=== PATIENT | male | born 1945 | race Caucasian/White ===

== ENCOUNTER 2018-01-25 13:35 | Emergency (ER) | payer OTHER, BC ==
[2018-01-25 13:43] VITALS: TEMP 98; BMI 22.2
--- NOTE | 2018-01-25 16:05 | PDOC ---
History of Present Illness - General Chief Complaint: Pain Stated Complaint: PAIN Time Seen by Provider: 01/25/18 15:58 - History of Present Illness Initial Comments: 01/25/18 18:04 The patient is a 72-year-old male, with a past medical history of CVA, hyperlipidemia, HTN, colonic polyps, and dementia, who presents to the ED with left inguinal pain today. The patient states that hes had this pain for many years, but it progressively worsened 2 days ago. He states that he noted a lump in the area when he is lying down that goes away when he stands up. The patient had an appointment with his Urologist today and had a urinalysis and blood drawn. The results came back negative. He denies having any prior surgeries or testicular pain. The patient denies any fever, chills, nausea, vomiting, or diarrhea. Last BM today was normal. Denies any chest pain shortness of breath. Denies any urinary symptoms. Allergies: NKA Surgical History: None PCP: Dr. Eric Hairston Past History - Past Medical History Allergies/Adverse Reactions: Allergies Allergy/AdvReac Type Severity Reaction Status Date / Time No Known Allergies Allergy Unverified 01/25/18 13:37 Home Medications: Ambulatory Orders Aspirin [ASA -] 325 mg PO 09/04/11 Benazepril HCl 5 mg PO DAILY 05/22/12 Fish Oil/Fat No.8/Hrb Comb.137 [[place] 3-6-9 1,200 mg Softgel] 1,200 mg PO DAILY 05/22/12 Lovastatin 80 mg PO DAILY 01/25/18 Anemia: No Asthma: No Cancer: No Cardiac Disorders: No CVA: Yes (NO RESIDUAL WEAKNESS) COPD: No CHF: No Dementia: Yes (MEMORY LOSS) Diabetes: No GI Disorders: Yes (COLONIC POLYPS) Disorders: No HTN: Yes Hypercholesterolemia: No Liver Disease: No Seizures: No Thyroid Disease: No - Surgical History Abdominal Surgery: No Appendectomy: No Cardiac Surgery: No Cholecystectomy: No Lung Surgery: No Neurologic Surgery: No Orthopedic Surgery: Yes (ARTHROSCOPIC SURGERY BOTH KNEES) - Suicide/Smoking/Psychosocial Hx Smoking Status: No Smoking History: Never smoked Have you smoked in the past 12 months: No Number of Cigarettes Smoked Daily: 0 Cigars Per Day: 0 Hx Alcohol Use: No Drug/Substance Use Hx: No Substance Use Type: Alcohol Hx Substance Use Treatment: No Review of Systems - Review of Systems Comments:: 01/25/18 18:04 GENERAL/CONSTITUTIONAL: No fever or chills. No weakness. HEAD, EYES, EARS, NOSE AND THROAT: No change in vision. No ear pain or discharge. No sore throat. GASTROINTESTINAL: (+)left inguinal pain. No nausea, vomiting, diarrhea or constipation. GENITOURINARY: No dysuria, frequency, or change in urination. CARDIOVASCULAR: No chest pain or shortness of breath. RESPIRATORY: No cough, wheezing, or hemoptysis. MUSCULOSKELETAL: No joint or muscle swelling or pain. No neck or back pain. SKIN: No rash NEUROLOGIC: No headache, vertigo, loss of consciousness, or change in strength/ sensation. ENDOCRINE: No increased thirst. No abnormal weight change. HEMATOLOGIC/LYMPHATIC: No anemia, easy bleeding, or history of blood clots. ALLERGIC/IMMUNOLOGIC: No hives or skin allergy. *Physical Exam - Vital Signs Last Vital Signs Temp Pulse Resp BP Pulse Ox 98 F 70 16 117/72 99 01/25/18 13:35 01/25/18 13:35 01/25/18 13:35 01/25/18 13:35 01/25/18 13:35 - Physical Exam Comments: 01/25/18 18:04 GENERAL: Awake, alert, and fully oriented, in no acute distress HEAD: No signs of trauma EYES: PERRLA, EOMI, sclera anicteric, conjunctiva clear ENT: Auricles normal inspection, hearing grossly normal, nares patent, oropharynx clear without exudates. Moist mucosa NECK: Normal ROM, supple, no lymphadenopathy, JVD, or masses LUNGS: Breath sounds equal, clear to auscultation bilaterally. No wheezes, and no crackles HEART: Regular rate and rhythm, normal S1 and S2, no murmurs, rubs or gallops ABDOMEN: +mild ttp over the inguinal canal. Soft, normoactive bowel sounds. No guarding, no rebound. No masses palpated. EXTREMITIES: Normal range of motion, no edema. No clubbing or cyanosis. No cords , erythema, or tenderness BACK: No midline spinal tenderness in cervical/thoracic/lumbar region NEUROLOGICAL: Normal speech, cranial nerves intact, negative pronator drift, 5/ 5 strength in all 4 extremities, normal sensation to light touch in all 4 extremities, normal cerebellar exam, normal gait, normal reflexes and tone SKIN: Warm, Dry, normal turgor, no rashes or lesions noted. ED Treatment Course - LABORATORY CBC & Chemistry Diagram: 01/25/18 16:40 01/25/18 16:40 Medical Decision Making - Medical Decision Making 01/25/18 18:07 72yo F with MMP presents with years of L inguinal pain, suddenly worse 2 days ago. Vitals wnl. Exam with mild ttp over left inguinal canal. Will obtain labs, UA, and CTAP and reassess. *DC/Admit/Observation/Transfer - Referrals Referrals: Eric Hairston MD [Primary Care Provider] - - Patient Instructions - Post Discharge Activity
[2018-01-25 17:00] LABS: BASO % 0.3 % (0-2.0); EOS % 1.2 % (0-4.5); HEMATOCRIT 41.5 % (35.4-49); HEMOGLOBIN 13.9 GM/dL (11.7-16.9); LYMPH % 17.2 % (8-40); MCH 32.3 pg (25.7-33.7); MCHC 33.5 g/dl (32.0-35.9); MEAN CELL VOLUME 96.3 fl (80-96); MEAN PLT VOLUME 9.4 fl (7.5-11.1); MONO % 9.6 % (3.8-10.2); NEUT % 71.7 % (42.8-82.8); PLATELET COUNT 169 K/MM3 (134-434); RBC 4.31 M/mm3 (4.00-5.60); WHITE BLOOD COUNT 4.1 K/mm3 (4.0-10.0)
[2018-01-25 17:01] LABS: URINE APPEARANCE CLEAR; URINE BILIRUBIN NEGATIVE (<2.0 mg/dL); URINE BLOOD NEGATIVE (NEGATIVE); URINE COLOR STRAW; URINE GLUCOSE (UA) NEGATIVE (NEGATIVE); URINE KETONE NEGATIVE (NEGATIVE); URINE LEUK ESTERASE NEGATIVE (NEGATIVE); URINE NITRITE NEGATIVE (NEGATIVE); URINE PROTEIN NEGATIVE (NEGATIVE); URINE UROBILINOGEN NEGATIVE mg/dL (0.2-1.0)
[2018-01-25 18:27] LABS: ALBUMIN 3.7 g/dl (3.4-5.0); ALK PHOS 58 U/L (45-117); ANION GAP 7 (8-16); BILIRUBIN,TOTAL 0.3 mg/dL (0.2-1.0); BLOOD UREA NITROGEN 16 mg/dL (7-18); CALCIUM 9.1 mg/dL (8.5-10.1); CHLORIDE 102 mmol/L (98-107); CO2 29 mmol/L (21-32); GLUCOSE,RANDOM 100 mg/dL (74-106); POTASSIUM 4.8 mmol/L (3.5-5.1); SGOT/AST 29 U/L (15-37); SGPT/ALT 28 U/L (12-78); SODIUM 138 mmol/L (136-145); TOT PROT 6.7 g/dl (6.4-8.2)
--- NOTE | 2018-01-25 21:06 | PDOC ---
*Physical Exam - Vital Signs Last Vital Signs Temp Pulse Resp BP Pulse Ox 98 F 70 16 117/72 99 01/25/18 13:35 01/25/18 13:35 01/25/18 13:35 01/25/18 13:35 01/25/18 13:35 ED Treatment Course - LABORATORY CBC & Chemistry Diagram: 01/25/18 16:40 01/25/18 17:50 - ADDITIONAL ORDERS Additional order review: Laboratory Results 01/25/18 01/25/18 01/25/18 17:50 16:40 16:40 Sodium 138 Cancelled Potassium 4.8 Cancelled Chloride 102 Cancelled Carbon Dioxide 29 Cancelled Anion Gap 7 L Cancelled BUN 16 Cancelled Creatinine 1.0 Cancelled Creat Clearance w eGFR > 60 Cancelled Random Glucose 100 Cancelled Calcium 9.1 Cancelled Total Bilirubin 0.3 Cancelled AST 29 Cancelled ALT 28 Cancelled Alkaline Phosphatase 58 Cancelled Total Protein 6.7 Cancelled Albumin 3.7 Cancelled Urine Color Straw Urine Appearance Clear Urine pH 7.0 Ur Specific Tye 1.006 Urine Protein Negative Urine Glucose (UA) Negative Urine Ketones Negative Urine Blood Negative Urine Nitrite Negative Urine Bilirubin Negative Urine Urobilinogen Negative Ur Leukocyte Esterase Negative 01/25/18 16:40 RBC 4.31 MCV 96.3 H MCHC 33.5 RDW 13.0 MPV 9.4 Neutrophils % 71.7 Lymphocytes % 17.2 Monocytes % 9.6 Eosinophils % 1.2 Basophils % 0.3 *DC/Admit/Observation/Transfer Diagnosis at time of Disposition: Abdominal pain Qualifiers: Abdominal location: unspecified location Qualified Code(s): R10.9 - Unspecified abdominal pain - Discharge Dispostion Disposition: HOME Condition at time of disposition: Stable Decision to Admit order: No - Referrals Referrals: Eric Hairston MD [Primary Care Provider] - - Patient Instructions Printed Discharge Instructions: DI for Abdominal Pain-Adult Additional Instructions: Please follow up with Dr. Kostas Haisrton tomorrow. give a call after 10 am. - Post Discharge Activity
[2018-01-25 21:15] VITALS: BP 145/72; PULSE 62
== END 2018-01-25 21:15 | disposition home or self-care (01) ==
LOC: JER 13:35
DX: R10.9 Unspecified abdominal pain (principal); E78.5 Hyperlipidemia, unspecified; I10 Essential (primary) hypertension; Z86.73 Personal history of transient ischemic attack (TIA), and cerebral infarction without residual deficits; F03.90 Unspecified dementia, unspecified severity, without behavioral disturbance, psychotic disturbance, mood disturbance, and anxiety
CPT/HCPCS: 36415; 74177-TC; 80053; 81003; 85025; 87086; 99283-25

== ENCOUNTER 2018-01-28 12:00 | Emergency (ER) | payer OTHER, BC ==
[2018-01-28 12:06] VITALS: BP 130/72; PULSE 69; TEMP 97.7; BMI 22.2
--- NOTE | 2018-01-28 12:25 | PDOC ---
History of Present Illness - General Chief Complaint: Constipation Stated Complaint: PAIN Time Seen by Provider: 01/28/18 12:14 History Source: Patient Exam Limitations: No Limitations - History of Present Illness Initial Comments: This is a 72 YOM with h/o TIA x3, HTN, HLD, and distant spinal stenosis who p/w left mid-femur pain and constipation. He was seen here in the ED on 01/25/18 for left inguinal pain. He had lab workup and CTAP at that time which showed moderate-large amount of stool in the colon, as well as L2-3 moderate DDD with mild central and left parasternal posterior spur formation possibly impinging left L3 nerve root, L4-5 moderate DDD with mild broad-based disc bulge raching right L4 nerve root, and L5-S1 mild DDD with mild broad-based disc bulge probably slightly impinging both L5 nerve roots. He has had slightly improved constipation since that time, last BM this morning was moderate sized and brown , not black or bloody, and not particularly hard. He additionally notes pain to the front of his left femur which is new, as well as lower back pain, relieved when he leans forward. He denies fever, chills, nausea, vomiting, diarrhea, abdominal pain, chest pain, SOB, neck pain, BRAVO, vision change, urine retention or incontinence, bowel incontinence, numbness, tingling, focal weakness, gait instability, etc. Past History - Past Medical History Allergies/Adverse Reactions: Allergies Allergy/AdvReac Type Severity Reaction Status Date / Time No Known Allergies Allergy Unverified 01/28/18 12:06 Home Medications: Ambulatory Orders Aspirin [ASA -] 325 mg PO 09/04/11 Benazepril HCl 5 mg PO DAILY 05/22/12 Fish Oil/Fat No.8/Hrb Comb.137 [[place] 3-6-9 1,200 mg Softgel] 1,200 mg PO DAILY 05/22/12 Lovastatin 80 mg PO DAILY 01/25/18 Magnesium Citrate [Citroma -] 150 ml PO BID #1 bottle 01/28/18 Anemia: No Asthma: No Cancer: No Cardiac Disorders: No CVA: Yes (NO RESIDUAL WEAKNESS) COPD: No CHF: No Dementia: Yes (MEMORY LOSS) Diabetes: No GI Disorders: Yes (COLONIC POLYPS) Disorders: No HTN: Yes Hypercholesterolemia: No Liver Disease: No Seizures: No Thyroid Disease: No - Surgical History Abdominal Surgery: No Appendectomy: No Cardiac Surgery: No Cholecystectomy: No Lung Surgery: No Neurologic Surgery: No Orthopedic Surgery: Yes (ARTHROSCOPIC SURGERY BOTH KNEES) - Immunization History Immunization Up to Date: Yes - Suicide/Smoking/Psychosocial Hx Smoking Status: No Smoking History: Never smoked Have you smoked in the past 12 months: No Number of Cigarettes Smoked Daily: 0 Cigars Per Day: 0 Hx Alcohol Use: No Drug/Substance Use Hx: No Substance Use Type: Alcohol Hx Substance Use Treatment: No Review of Systems - Review of Systems Able to Perform ROS?: Yes Constitutional: No: Chills, Fever, Unexplained wgt Loss HEENTM: No: Nose Congestion, Throat Pain Respiratory: No: Cough, Shortness of Breath Cardiac (ROS): No: Chest Pain, Palpitations ABD/GI: Yes: Constipated. No: Diarrhea, Nausea, Vomiting : No: Burning, Dysuria, Incontinence Musculoskeletal: Yes: Back Pain, Other (left thigh pain). No: Neck Pain Integumentary: No: Bruising, Rash Neurological: No: Headache, Numbness, Tingling, Weakness, Unsteady Gait, Dizziness Endocrine: No: Unexplained Weight Gain, Unexplained Weight Loss *Physical Exam - Vital Signs Last Vital Signs Temp Pulse Resp BP Pulse Ox 97.7 F 69 18 130/72 99 01/28/18 12:04 01/28/18 12:04 01/28/18 12:04 01/28/18 12:04 01/28/18 12:04 - Physical Exam General Appearance: Yes: Nourished, Appropriately Dressed, Other (very healthy and well appearing older adult male who appears younger than stated age, holding LLE flexed at the hip, answering questions appropriately). No: Apparent Distress HEENT: positive: EOMI, DILMA, Normal ENT Inspection, Normal Voice, Hearing Grossly Normal. negative: Scleral Icterus (R), Scleral Icterus (L), Nasal Congestion Neck: positive: Trachea midline, Supple. negative: Tender, Rigid Respiratory/Chest: positive: Lungs Clear, Normal Breath Sounds. negative: Respiratory Distress, Crackles, Rhonchi, Stridor, Wheezing Cardiovascular: positive: Regular Rhythm, Regular Rate, S1, S2. negative: Edema , JVD, Murmur Gastrointestinal/Abdominal: positive: Normal Bowel Sounds, Flat, Soft, Other ( no palpable stool). negative: Tender, Organomegaly, Pulsatile Mass, Guarding Male Genitalia: negative: inguinal hernia Rectal Exam: positive: normal exam, normal rectal tone, other (small amount of soft brown stool in the rectal vault) Musculoskeletal: positive: Normal Inspection. negative: CVA Tenderness, Decreased Range of Motion, Vertebral Tenderness Extremity: positive: Normal Capillary Refill, Normal Inspection, Normal Range of Motion. negative: Tender, Cyanosis Integumentary: positive: Normal Color, Dry, Warm. negative: Erythema, Rash, Bruising Neurologic: positive: bone drier II-XII NML intact, Fully Oriented, Alert, Normal Mood/ Affect, Normal Response, Motor Strength 5/5, Finger to Nose (normal), Other ( normal gait). negative: EOM Palsy, Facial Droop, Numbness, Sensory Deficit, Confused, Disoriented Medical Decision Making - Medical Decision Making Patient with h/o with back pain radiating to his left mid-thigh, and mild constipation which has been resolving. No new red flag symptoms (see HPI). Initial Vital Signs Temp Pulse Resp BP Pulse Ox 97.7 F 69 18 130/72 99 01/28/18 12:04 01/28/18 12:04 01/28/18 12:04 01/28/18 12:04 01/28/18 12:04 Exam: essentially normal exam, normal heart, lung, abdomen, and neuro exams, no stool palpated in the abdomen, no inguinal hernia. DDX IBNLT: DDD, DJD, osteophyte, compression fxr, other vertebral or spinous process fxr; much LL malignancy (i.e. multiple myeloma), spinal epidural abscess , epidural hematoma, meningitis, or other more concerning etiology. W/U ordered: None TX ordered: Tylenol Reassessment: Unchanged and benign neuro exam Repeat VS: The patient is appropriate for discharge with close outpatient follow up. The Pt is comfortable with this plan and will follow up with their PCP in 1-3 days. They are counseled on importance of proactive pain management and neurosurgery follow up. Specific return precautions are discussed and they will come back to the ER if necessary. *DC/Admit/Observation/Transfer Diagnosis at time of Disposition: Back pain Qualifiers: Back pain location: low back pain Chronicity: unspecified Back pain laterality : left Sciatica presence: with sciatica Sciatica laterality: sciatica of left side Qualified Code(s): M54.42 - Lumbago with sciatica, left side - Discharge Dispostion Disposition: HOME Condition at time of disposition: Stable Decision to Admit order: No - Prescriptions Prescriptions: Magnesium Citrate [Citroma -] 150 ml PO BID #1 bottle - Referrals Referrals: Arabella Hairston [Primary Care Provider] - - Patient Instructions Additional Instructions: You were seen in the ER for back pain and resolving constipation. We are giving you a prescription for a dose of magnesium citrate (this will be sent electronically to your pharmacy, where you can pick it up). We are giving you referral information for one of our neurosurgeons; please follow up with them or with your own neurosurgeon. Please also follow up with your regular PCP doctor in 1-3 days. Call their clinic as soon as possible, tell them you were seen in the ER for back pain, and tell them you need an appointment. If you have any new or worsening symptoms please come back to the ER at any time (24 hours a day), especially for fever, new numbness, new tingling new weakness, new urinary or bowel incontinence or retention, or other new symptoms. If you are having severe or life threatening symptoms, or symptoms that make it unsafe to drive or have someone drive you, please call 911. - Post Discharge Activity
--- NOTE | 2018-01-28 13:17 | PDOC ---
Attending Attestation - Resident Resident Name: Rosmery Pavon - ED Attending Attestation I have performed the following: I have examined & evaluated the patient, The case was reviewed & discussed with the resident, I agree w/resident's findings & plan, Exceptions are as noted - HPI HPI: 01/28/18 13:15 72-year-old male with history of TIA, hypertension, hyperlipidemia presents with left leg pain. The patient was here proximate 3 days ago for constipation where he obtain a CAT scan the head and pelvis which demonstrated a moderate amount of fecal retention. Patient was treated and reports significant relief. States moving his bowels normally. However, patient continues to complain of left leg pain relieved by hip flexion. States he has history of spinal stenosis of his lumbar spine. Denies any urinary or bowel incontinence. Denies any numbness or weakness. The patient had a femur radiograph performed of the left femur which showed no acute findings other than some mild arthritis of the left hip. Because of his persistent left leg pain and came to the ED. - Physicial Exam PE: 01/28/18 13:16 GENERAL: Awake, alert, and fully oriented, in no acute distress. HEAD: No signs of trauma EYES: EOMI, sclera anicteric, conjunctiva clear ENT: Auricles normal inspection, hearing grossly normal, nares patent NECK: Normal ROM, supple ABDOMEN: Soft, nontender. No guarding, no rebound. No masses RECTAL: as per resident EXTREMITIES: Normal range of motion, no edema. No clubbing or cyanosis. No cords, erythema, or tenderness LLE: 2+ DP pulse. Sensation intact throughout. No tenderness to palpation of left thigh. No rash. NEUROLOGICAL: Cranial nerves II through XII grossly intact. Normal speech, normal gait SKIN: Warm, Dry, normal turgor, no rashes or lesions noted. - Medical Decision Making 01/28/18 13:17 Vital Signs Temp Pulse Resp BP Pulse Ox 97.7 F 69 18 130/72 99 01/28/18 12:04 01/28/18 12:04 01/28/18 12:04 01/28/18 12:04 01/28/18 12:04 The patient reports that he is moving his bowels but remains somewhat constipated. Is requesting a medication as stronger than his MiraLAX and as per injuries. I offered to give him a prescription for one dose of magnesium and sedimentation rate which patient reports that he'll take at home. In addition, I suspect that his left leg may be secondary to his lumbar spine. On the CAT scan that was performed 3 days ago, there was noted to be some L3 nerve root impingement secondary to vertebral pathology. Patient likely does not have signs of cord compression. We'll have the patient follow-up as an outpatient for physical therapy and for primary care follow-up. I advised patient may benefit from spine surgery follow-up as well. Patient is clear for discharge with outpatient follow-up. <Jovon Meyer - Last Filed: 01/28/18 13:11> - HPI HPI: Patient is a 72 M, with PMHx of TIA (x3), HTN, HLD, constipation, spinal stenosis, who presents to the ED for continued constipation as well a new onset left femur pain. Patient states that his left femur pain is non-radiating, more anterior than posterior, better with bending forward at hip, and better with flexion at the knee. He had a CT scan done during his last visit which showed: Moderate amount of fecal residue in the colon. L2-L3 moderate degenerative disc disease with mild central and left paracentral posterior spur formation possibly impinging left L3 nerve root. L5-S1 mild degenerative disc disease with mild broad based disc bulge probably slightly impinging both L5 nerve roots. He states he has taken Advil at 2am without relief. He was seen 3 days ago for constipation and states that he has been taking Miralax, eating fiber, as well as drinking prune juice and warm water. He reports normal BM this morning. He denies recent injuries, heavy lifting. He denies recent fever, chills nausea , vomitting, diarrhea, bloody or black stools, rashes. PCP: Dr. Eric Hairston Social Hx: 10-12 alcoholic drinks/week. 01/28/18 13:25 - Physicial Exam PE: GENERAL: Awake, alert, and fully oriented, in no acute distress. HEAD: No signs of trauma EYES: EOMI, sclera anicteric, conjunctiva clear ENT: Auricles normal inspection, hearing grossly normal, nares patent NECK: Normal ROM, supple ABDOMEN: Soft, nontender. No guarding, no rebound. No masses RECTAL: as per resident EXTREMITIES: Normal range of motion, no edema. No clubbing or cyanosis. No cords, erythema, or tenderness LLE: 2+ DP pulse. Varicose veins. Sensation intact throughout. No tenderness to palpation of left thigh. No rash. NEUROLOGICAL: Cranial nerves II through XII grossly intact. Normal speech, normal gait SKIN: Warm, Dry, normal turgor, no rashes or lesions noted. 01/28/18 13:29 <Yue Mcintyre - Last Filed: 01/28/18 13:30>
== END 2018-01-28 13:24 | disposition home or self-care (01) ==
LOC: JER 12:00
DX: M54.42 Lumbago with sciatica, left side (principal); E78.5 Hyperlipidemia, unspecified; I10 Essential (primary) hypertension; Z86.73 Personal history of transient ischemic attack (TIA), and cerebral infarction without residual deficits
CPT/HCPCS: 99282-25

== ENCOUNTER 2018-01-30 06:20 | Emergency (ER) | payer OTHER, BC ==
[2018-01-30 06:48] VITALS: BMI 22.6
[2018-01-30] MEDS ORDERED: SODIUM CHLORIDE 0.9% 1000 ML INFUS.BAG IV ONE (07:50)
[2018-01-30] MEDS ORDERED: morphine CARPU-JECT 4 MG/1 ML DISP.SYRIN IVPUSH ONE ×2 (07:50→11:33)
--- NOTE | 2018-01-30 07:50 | PDOC ---
History of Present Illness <Gilberto Hirsch - Last Filed: 01/30/18 10:48> - History of Present Illness Initial Comments: 01/30/18 13:06 This is a 72-year-old gentleman past medical history significant for CVA hyperlipidemia hypertension chronic polyps who presents to the emergency department with greater than several year history of intermittent left hip left lower quadrant discomfort which has been worse over the last week. Patient has seen his primary care provider as well as visited the emergency department twice for the same. Pain is intermittent and comes and goes moderate to severe when it's worse seems to be associated with gas and nausea alleviated by laying down and deep palpation. Denies fever chills nausea vomiting diarrhea chest pain shortness of breath <Reinaldo Roberto - Last Filed: 01/30/18 13:09> - General Chief Complaint: Pain Stated Complaint: GROIN PAIN Time Seen by Provider: 01/30/18 07:23 Past History <Gilberto Hirsch - Last Filed: 01/30/18 10:48> - Past Medical History Anemia: No Asthma: No Cancer: No Cardiac Disorders: No CVA: Yes (NO RESIDUAL WEAKNESS) COPD: No CHF: No Dementia: Yes (MEMORY LOSS) Diabetes: No GI Disorders: Yes (COLONIC POLYPS) Disorders: No HTN: Yes Hypercholesterolemia: No Liver Disease: No Seizures: No Thyroid Disease: No - Surgical History Abdominal Surgery: No Appendectomy: No Cardiac Surgery: No Cholecystectomy: No Lung Surgery: No Neurologic Surgery: No Orthopedic Surgery: Yes (ARTHROSCOPIC SURGERY BOTH KNEES) - Immunization History Immunization Up to Date: Yes - Suicide/Smoking/Psychosocial Hx Smoking Status: No Smoking History: Never smoked Have you smoked in the past 12 months: No Number of Cigarettes Smoked Daily: 0 Cigars Per Day: 0 Information on smoking cessation initiated: No Hx Alcohol Use: No Drug/Substance Use Hx: No Substance Use Type: Alcohol Hx Substance Use Treatment: No <Reinaldo Roberto - Last Filed: 01/30/18 13:09> - Past Medical History Allergies/Adverse Reactions: Allergies Allergy/AdvReac Type Severity Reaction Status Date / Time No Known Allergies Allergy Verified 01/30/18 06:44 Home Medications: Ambulatory Orders Aspirin [ASA -] 325 mg PO 09/04/11 Benazepril HCl 5 mg PO DAILY 05/22/12 Fish Oil/Fat No.8/Hrb Comb.137 [Orr 3-6-9 1,200 mg Softgel] 1,200 mg PO DAILY 05/22/12 Lovastatin 80 mg PO DAILY 01/25/18 Magnesium Citrate [Citroma -] 150 ml PO BID #1 bottle 01/28/18 Dicyclomine HCl [Bentyl -] 10 mg PO Q6H #28 capsule 01/30/18 Famotidine [Pepcid -] 20 mg PO DAILY #30 tablet 01/30/18 Meloxicam [Mobic] 15 mg PO DAILY #14 tablet 01/30/18 Review of Systems - Review of Systems Comments:: 01/30/18 13:07 ROS: A complete review of 10 out of 10 review of systems is taken and is negative apart from what is previously mentioned below and in the HPI. <Reinaldo Roberto - Last Filed: 01/30/18 13:09> *Physical Exam - Vital Signs Last Vital Signs Temp Pulse Resp BP Pulse Ox 98.2 F 81 18 122/87 97 01/30/18 06:45 01/30/18 06:45 01/30/18 06:45 01/30/18 06:45 01/30/18 06:45 <Gilberto Hirsch - Last Filed: 01/30/18 10:48> - Vital Signs Last Vital Signs Temp Pulse Resp BP Pulse Ox 98.2 F 81 18 122/87 97 01/30/18 06:45 01/30/18 06:45 01/30/18 06:45 01/30/18 06:45 01/30/18 06:45 - Physical Exam Comments: 01/30/18 13:08 Vitals: Triage Vital signs reviewed General Appearance: no acute distress, well nourished well developed, Head: Atraumatic, Cardiac: Regular rate and rhythym, no murmurs, no rubs, no gallops, Lungs: Clear to auscultation bilateral, good air movement bilaterally, Abdomen: Soft, non distended, normal bowel sounds, non tender to palpation Genitourinary: No testicular pain Rectal: Exam deferred Extremities: Full range of motion to all extremities, no cyanosis, clubbing, or edema Skin: Warm and dry, no rashes or lesions, no rash, no petechiae Neuro: Strength intact to all extremities, Sensation intact to all extremities, gait normal Psych: normal mood, normal affect <Reinaldo Roberto - Last Filed: 01/30/18 13:09> ED Treatment Course - LABORATORY CBC & Chemistry Diagram: 01/30/18 09:14 01/30/18 09:14 - ADDITIONAL ORDERS Additional order review: Laboratory Results 01/30/18 01/30/18 09:14 09:14 Sodium 137 Potassium 4.7 Chloride 103 Carbon Dioxide 27 Anion Gap 7 L BUN 20 H D Creatinine 1.0 Creat Clearance w eGFR > 60 Random Glucose 97 Calcium 9.1 Total Bilirubin 0.3 AST 25 ALT 25 Alkaline Phosphatase 53 Total Protein 6.6 Albumin 3.6 Lipase 222 Urine Color Ltyellow Urine Appearance Clear Urine pH 6.0 Ur Specific [place] 1.014 Urine Protein Negative Urine Glucose (UA) Negative Urine Ketones Negative Urine Blood Negative Urine Nitrite Negative Urine Bilirubin Negative Urine Urobilinogen Negative Ur Leukocyte Esterase Negative 01/30/18 09:14 RBC 4.37 MCV 95.5 MCHC 33.6 RDW 12.7 MPV 9.6 Neutrophils % 68.7 Lymphocytes % 18.7 Monocytes % 10.7 H Eosinophils % 1.1 Basophils % 0.8 - Medications Given in the ED: ED Medications Discontinued Medications Generic Name Dose Route Start Last Admin Trade Name Kikeq PRN Reason Stop Dose Admin Acetaminophen 1,000 mg 01/30/18 10:00 01/30/18 10:06 Ofirmev Injection - IVPB 01/30/18 10:01 1,000 mg ONCE ONE Administration Ketorolac Tromethamine 30 mg 01/30/18 08:46 01/30/18 08:53 Toradol Injection - IVPUSH 01/30/18 08:47 Not Given ONCE ONE Morphine Sulfate 4 mg 01/30/18 07:50 01/30/18 08:42 Morphine Injection - IVPUSH 01/30/18 07:51 Not Given ONCE ONE Sodium Chloride 1,000 ml 01/30/18 07:50 01/30/18 08:43 Normal Saline - IV 01/30/18 07:51 1,000 ml ONCE ONE Administration <Gilberto Hirsch - Last Filed: 01/30/18 10:48> - LABORATORY CBC & Chemistry Diagram: 01/30/18 09:14 01/30/18 09:14 - RADIOLOGY Radiology Studies Ordered: Category Date Time Status ABDOMEN & PELVIS CT WITH CONTR [CT] Stat CT Scan 01/30/18 07:22 Ordered <FelisaReinaldo - Last Filed: 01/30/18 13:09> Medical Decision Making - Medical Decision Making 01/30/18 10:[address] Eric Hairston at 8:32 am Case discussed with Dr. Hairston at 4:41 am. Documentation prepared by Gilberto Hirsch, acting as medical assistant instructor for Reinaldo Roberto MD. <Gilberto Hirsch - Last Filed: 01/30/18 10:48> - Medical Decision Making 01/30/18 13:08 Initially x-rays were ordered to try to avoid reimaging however patient complaining of persistent pain decision made after discussion with patient's primary care provider to reimage abdomen pelvis CAT scan findings as dictated findings discussed with both patient and patient' s primary care provider. 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 Given that his symptoms seem to be exacerbated by gas will discharge on course of Bentyl and Pepcid as well as Mobic Findings, need for follow-up and strict return instructions discussed patient. <FelisaReinaldo - Last Filed: 01/30/18 13:09> *DC/Admit/Observation/Transfer <Gilberto Hirsch - Last Filed: 01/30/18 10:48> - Discharge Dispostion Decision to Admit order: No <FelisaReinaldo - Last Filed: 01/30/18 13:09> Diagnosis at time of Disposition: Abdominal pain Qualifiers: Abdominal location: left lower quadrant Qualified Code(s): R10.32 - Left lower quadrant pain - Discharge Dispostion Condition at time of disposition: Good - Prescriptions Prescriptions: Dicyclomine HCl [Bentyl -] 10 mg PO Q6H #28 capsule Famotidine [Pepcid -] 20 mg PO DAILY #30 tablet Meloxicam [Mobic] 15 mg PO DAILY #14 tablet - Referrals Referrals: Eric Hairston MD [Primary Care Provider] - Jason Ramirez MD [Staff Physician] - - Patient Instructions Printed Discharge Instructions: Aseptic Necrosis of the Hip Additional Instructions: Take Mobic Pepcid and Bentyl as prescribed. Follow tomorrow with Dr. Andreoni to schedule an MRI of the left hip which shows avascular necrosis or degeneration. Return to ED for any severe worsening symptoms or for any concerns. Also follow up with your urologist Dr. Hernandez for further evaluation of your prostate and mild urinary retention. - Post Discharge Activity
[2018-01-30] MEDS ORDERED: MORPHINE SULFATE 10 MG/1 ML *VIAL ONE ×2 (08:07→11:44)
[2018-01-30] MEDS ORDERED: KETOROLAC TROMETHAMINE 30 MG/1 ML VIAL IVPUSH ONE (08:46)
[2018-01-30] MEDS ORDERED: KETOROLAC TROMETHAMINE 30 MG/1 ML VIAL ONE (08:54)
[2018-01-30 09:18] LABS: BASO % 0.8 % (0-2.0); EOS % 1.1 % (0-4.5); HEMATOCRIT 41.7 % (35.4-49); LYMPH % 18.7 % (8-40); MCH 32.1 pg (25.7-33.7); MCHC 33.6 g/dl (32.0-35.9); MEAN CELL VOLUME 95.5 fl (80-96); MEAN PLT VOLUME 9.6 fl (7.5-11.1); MONO % 10.7 % (3.8-10.2); NEUT % 68.7 % (42.8-82.8); PLATELET COUNT 157 K/MM3 (134-434); RBC 4.37 M/mm3 (4.00-5.60); RDW 12.7 % (11.9-15.9); WHITE BLOOD COUNT 3.6 K/mm3 (4.0-10.0)
[2018-01-30 09:23] LABS: URINE APPEARANCE CLEAR; URINE BILIRUBIN NEGATIVE (<2.0 mg/dL); URINE COLOR LTYELLOW; URINE GLUCOSE (UA) NEGATIVE (NEGATIVE); URINE KETONE NEGATIVE (NEGATIVE); URINE LEUK ESTERASE NEGATIVE (NEGATIVE); URINE NITRITE NEGATIVE (NEGATIVE); URINE PROTEIN NEGATIVE (NEGATIVE); URINE UROBILINOGEN NEGATIVE mg/dL (0.2-1.0)
[2018-01-30 09:44] LABS: ALBUMIN 3.6 g/dl (3.4-5.0); ALK PHOS 53 U/L (45-117); ANION GAP 7 (8-16); BILIRUBIN,TOTAL 0.3 mg/dL (0.2-1.0); BLOOD UREA NITROGEN 20 mg/dL (7-18); CALCIUM 9.1 mg/dL (8.5-10.1); CHLORIDE 103 mmol/L (98-107); CO2 27 mmol/L (21-32); GLUCOSE,RANDOM 97 mg/dL (74-106); POTASSIUM 4.7 mmol/L (3.5-5.1); SGOT/AST 25 U/L (15-37); SGPT/ALT 25 U/L (12-78); SODIUM 137 mmol/L (136-145); TOT PROT 6.6 g/dl (6.4-8.2)
[2018-01-30 09:48] LABS: LIPASE 222 U/L (73-393)
[2018-01-30] MEDS ORDERED: ACETAMINOPHEN 1000 MG/100 ML VIAL (NON FORMULARY) IVPB ONE (10:00)
[2018-01-30] MEDS ORDERED: ACETAMINOPHEN INJECTION 100 ML IVPB ONE (10:03)
--- NOTE | 2018-01-30 13:50 | EKG ---
Test Reason : Blood Pressure : / mmHG Vent. Rate : 056 BPM Atrial Rate : 056 BPM P-R Int : 180 ms QRS Dur : 106 ms QT Int : 416 ms P-R-T Axes : 056 057 061 degrees QTc Int : 401 ms SINUS BRADYCARDIA MODERATE VOLTAGE CRITERIA FOR LVH, MAY BE NORMAL VARIANT BORDERLINE ECG WHEN COMPARED WITH ECG OF 04-NOV-2007 21:00, PREVIOUS ECG IS PRESENT Confirmed by TED SAGASTUME MD ([id number]) on 01/30/2018 1:50:12 PM Referred By: Confirmed By:TED SAGASTUME MD
[2018-01-30 14:10] VITALS: BP 133/78; PULSE 70; TEMP 97.8
== END 2018-01-30 14:08 | disposition home or self-care (01) ==
LOC: JER 06:20
PROC: 3E033NZ Introduction of Analgesics, Hypnotics, Sedatives into Peripheral Vein, Percutaneous Approach (ICD-10-PCS; principal; 2018-01-30)
PROC: 3E033NZ Introduction of Analgesics, Hypnotics, Sedatives into Peripheral Vein, Percutaneous Approach (ICD-10-PCS; 2018-01-30)
DX: R10.32 Left lower quadrant pain (principal); I10 Essential (primary) hypertension; F03.90 Unspecified dementia, unspecified severity, without behavioral disturbance, psychotic disturbance, mood disturbance, and anxiety; Z86.73 Personal history of transient ischemic attack (TIA), and cerebral infarction without residual deficits; Z86.010 Personal history of colon polyps
CPT/HCPCS: 36415; 72100-TC-FY; 74177-TC; 80053; 81003; 83690; 85025; 87086; 93005; 93010; 96374; 96375; 99284-25; J0131; J7030

== ENCOUNTER 2018-03-06 08:07 | Day surgery (SDC) | payer OTHER, BC ==
[2018-02-27 14:25] VITALS: BMI 22.4
[2018-03-06] MEDS ORDERED: PROPOFOL 20 ML ONE ×2 (08:14)
[2018-03-06] MEDS ORDERED: LIDOCAINE HCL/PF 2% SDV 5ML VIAL ONE (08:15)
[2018-03-06 08:24] VITALS: TEMP 97.8
[2018-03-06 10:13] VITALS: BP 136/76; PULSE 55
--- NOTE | 2018-03-07 14:03 | PATH ---
Surgical Pathology Report Patient Name: KWABENA MOSELEY [facility]. Rec. #: [id number] /Age/Gender: 1945 (Age: 72) / M Account: [id number] Location: [facility]-ENDOSCOPY Taken: 03/06/2018 Received: 03/06/2018 Reported: 03/07/2018 Physicians: Devin Victoria M.D. Specimen(s) Received A: BX RIGHT COLON B: RECTO SIGMOID Clinical History History of polyps Postoperative diagnosis: Polyps Final Diagnosis A. RIGHT COLON, BIOPSY: HYPERPLASTIC POLYP. B. RECTOSIGMOID, BIOPSY: VEGETABLE MATERIAL ONLY. Electronically Signed Kyara Sneed M.D. Gross Description A. Received in formalin, labeled "right colon" is a mercedes, irregular portion of soft tissue measuring 0.3 cm. in greatest dimension. The specimen is submitted in toto in one cassette. B. Received in formalin labeled "rectosigmoid," is a 0.5 x 0.4 x 0.1 cm aggregate of mercedes-brown material, possibly consistent with vegetable matter. No definite soft tissue is identified. The formalin is filtered and the specimen is entirely submitted in one cassette. DL/03/06/2018 saudi03/06/2018
== END 2018-03-06 09:55 | disposition home or self-care (01) ==
LOC: FASU-ENDO 08:07
PROVIDERS: ATTEND Internal Medicine Gastroenterology
PROC: 0DBN8ZX Excision of Sigmoid Colon, Via Natural or Artificial Opening Endoscopic, Diagnostic (ICD-10-PCS; principal; 2018-03-06 08:49)
PROC: 0DBK8ZX Excision of Ascending Colon, Via Natural or Artificial Opening Endoscopic, Diagnostic (ICD-10-PCS; 2018-03-06 08:49)
DX: Z86.010 Personal history of colon polyps (principal); K63.5 Polyp of colon
CPT/HCPCS: 88305-TC

== ENCOUNTER 2024-04-06 12:31 | Emergency (ER) | payer OTHER, BC ==
[2024-04-06 12:42] VITALS: TEMP 98.2; BMI 21.4
[2024-04-06 13:45] LABS: BASO % 0.4 % (0-2.0); EOS % 0.7 % (0-4.5); HEMATOCRIT 40.1 % (35.4-49); HEMOGLOBIN 13.4 GM/dL (11.7-16.9); LYMPH % 16.2 % (8-40); MCH 31.8 pg (25.7-33.7); MCHC 33.4 g/dl (32.0-35.9); MEAN CELL VOLUME 95.3 fl (80-96); MONO % 10.1 % (3.8-10.2); NEUT % 72.6 % (42.8-82.8); PLATELET COUNT 163 10^3/uL (134-434); RBC 4.21 M/mm3 (4.00-5.60); RDW 14.1 % (11.9-15.9)
[2024-04-06 13:52] LABS: INR 0.94 (0.83-1.09); PROTHROMBIN TIME (PATIENT) 10.8 SEC (9.7-13.0)
[2024-04-06 13:54] LABS: ACTIVATED PTT 30.2 SECONDS (25.2-36.5)
[2024-04-06 14:08] LABS: POTASSIUM 4.4 mmol/L (3.5-5.1)
[2024-04-06 14:10] LABS: CALCIUM 9.4 mg/dL (8.5-10.1)
[2024-04-06 14:11] LABS: ALBUMIN 3.8 g/dl (3.4-5.0)
[2024-04-06 14:12] LABS: BLOOD UREA NITROGEN 22.4 mg/dL (7-18)
[2024-04-06 14:14] LABS: CREATININE 1.2 mg/dL (0.55-1.3)
[2024-04-06 14:15] LABS: BILIRUBIN,TOTAL 0.5 mg/dL (0.2-1)
[2024-04-06 14:16] LABS: TOT PROT 6.8 g/dl (6.4-8.2)
[2024-04-06] MEDS ORDERED: DIPHTH,PERTUSS(ACELL),TET 0.5 ML DISP.SYRIN IM ONE (15:50)
[2024-04-06 16:43] LABS: PH,URINE 6.5 (5.0-8.0); URINE APPEARANCE CLEAR; URINE BILIRUBIN NEGATIVE (NEGATIVE); URINE COLOR YELLOW; URINE GLUCOSE (UA) NEGATIVE (NEGATIVE); URINE KETONE NEGATIVE (NEGATIVE); URINE LEUK ESTERASE NEGATIVE (NEGATIVE); URINE NITRITE NEGATIVE (NEGATIVE); URINE PROTEIN NEGATIVE (NEGATIVE); URINE UROBILINOGEN 0.2 mg/dL (0.2-1.0)
[2024-04-06 18:51] VITALS: BP 143/68; PULSE 58; RESP 16
== END 2024-04-06 16:15 | disposition left against medical advice (07) ==
LOC: JER 12:31
DX: S00.01XA Abrasion of scalp, initial encounter (principal); R41.0 Disorientation, unspecified; R93.0 Abnormal findings on diagnostic imaging of skull and head, not elsewhere classified; W11.XXXA Fall on and from ladder, initial encounter
CPT/HCPCS: 36415; 70450-TC; 71045-TC-FY; 72125-TC; 72170-TC-FY; 80053; 80061; 81003; 82550; 82553; 82962; 83036; 84484; 85025; 85610; 85730; 86850; 86900; 86901; 93005; 93010; 99285-25